=== PATIENT | female | born 1970 | race Two or more races ===

== ENCOUNTER 2018-11-22 13:23 | Day surgery (SDC) | payer BC ==
[~2018-11-22] VITALS: Ht 157.5 cm; Wt 50.0 kg
[2018-11-22 14:08] VITALS: Ht 157.5 cm; Wt 50.0 kg
[2018-11-22] MEDS ORDERED: HORMONE MEDICATION (14:31)
[2018-11-22] MEDS ORDERED: PROPOFOL 20 ML ONE (15:22)
--- NOTE | 2018-11-22 15:24 | PREAC ---
Date/Time of Note Date/Time of Note DATE: 11/22/18 TIME: 15:24 Anesthesia Eval and Record Evaluation Time Pre-Procedure Interview DATE: 11/22/18 TIME: 15:24 Age 47 Sex female NPO: 8 hrs Preoperative diagnosis Colon screening, H/O colon polyp Planned procedure Colonoscopy Past Medical History Past Medical History: None Surgery & Anesthesia Issues No known issue Meds Anticoagulation: No Beta Reinier within 24 hr: No Reason Beta Reinier not given: Pt. not on B-Reinier Reported Medications [Hormone Medication] No Conflict Check 11/22/18 Meds reviewed: Yes Allergies Coded Allergies: Penicillins (Verified Allergy, Unknown, 11/22/18) Allergies Reviewed: Yes Labs/Studies Labs Reviewed: Reviewed by anesthesiologist test: Negative Pre-procedure Exam Airway: Adequate mouth opening Mallampati: Mallampati I Teeth: Normal Lung: Normal Heart: Normal ASA Physical Status ASA physical status: 1 Emergency: None Planned Anesthetic General/MAC: MAC Planned Pain Management Parenteral pain med Pre-operative Attestations Prior to commencing anesthesia and surgery, the patient was re-evaluated, there was verification of: *The patient's identity *The results of appropriate recent lab work and preoperative vital signs *The above evaluation not changing prior to induction *Anesthetic plan, risk benefits, alternative and complications discussed with patient/family; questions answered; patient/family understands, accepts and wi shes to proceed. JORDANA FRAUSTO MD Nov 22, 2018 15:24
[2018-11-22 15:35] VITALS: BP 115/63; PULSE 77; RESP 13
[2018-11-22] MEDS ORDERED: MIDAZOLAM 1 MG/ML 2 ML INJ IV PRN (16:00)
[2018-11-22] MEDS ORDERED: MEPERIDINE 25 MG INJ IV PRN (16:00)
[2018-11-22] MEDS ORDERED: hydrALAzine 20 MG INJ IV PRN (16:00)
[2018-11-22] MEDS ORDERED: FENTAnyl 50 MCG/ML VIAL IV PRN ×3 (16:00)
[2018-11-22] MEDS ORDERED: OXYCODONE/ACETAMINOPHEN (5/325) TAB PO PRN ×2 (16:00)
[2018-11-22] MEDS ORDERED: METOCLOPRAMIDE 10 MG INJ IV PRN (16:00)
[2018-11-22] MEDS ORDERED: LABETALOL HCL 20MG INJ IV PRN (16:00)
[2018-11-22] MEDS ORDERED: DIPHENHYDRAMINE 50 MG INJ IV PRN (16:00)
[2018-11-22] MEDS ORDERED: EPHEDrine SULFATE 50 MG/5 ML SYG IV PRN (16:00)
[2018-11-22] MEDS ORDERED: ONDANSETRON 4 MG INJ IV PRN (16:00)
--- NOTE | 2018-11-22 16:16 | PAC ---
Date/Time of Note Date/Time of Note DATE: 11/22/18 TIME: 16:16 Post-Anesthesia Notes Post-Anesthesia Note Last documented vital signs Vital Signs Date Temp Pulse Resp B/P (MAP) Pulse Ox O2 O2 Flow FiO2 Time Delivery Rate 11/22/18 97.9 77 13 115/63 98 Room Air 15:35 (80) Activity: WNL Respiratory function: WNL Cardiovascular function: WNL Mental status: Baseline Pain reasonably controlled: Yes Hydration appropriate: Yes Nausea/Vomiting absent: Yes Comments BP: 117/73, HR:77, PULSE OX: 98, RR:18 JORDANA FRAUSTO MD Nov 22, 2018 16:16
[2018-11-22 16:29] VITALS: BP 117/73; PULSE 77; RESP 18
== END 2018-11-22 17:38 | disposition home or self-care (01) ==
LOC: GIL 13:23
PROVIDERS: ATTEND Internal Medicine Gastroenterology
DX: Z12.11 Encounter for screening for malignant neoplasm of colon (principal); Z80.0 Family history of malignant neoplasm of digestive organs
CPT/HCPCS: 45378; 84703; Z7610